=== PATIENT | female | born 1990 | race Caucasian/White ===

== ENCOUNTER 2016-06-27 15:22 | Emergency (ER) | payer MEDICAID ==
--- NOTE | 2016-06-27 15:53 | ED Physician Chart ---
Chief Complaint/HPI - Patient Information Date Seen:: 06/27/16 Time Seen:: 15:35 Chief Complaint:: cough, back pain History of Present Illness:: 2 - 3 days prod. cough (pt. does not look at sputum). Subj. fever. LBP, bilat with cough. Allergies:: Allergies Allergy/AdvReac Type Severity Reaction Status Date / Time erythromycin base Allergy Verified 02/19/16 21:59 Vitals:: 99.6 110 145/71 22 97% RA Historian:: Patient LMP:: 2015. Recent UTI rx'ed with ? antibiotic 1 week ago. Had neg. preg. test then. Review of Systems - Review of Systems General/Constitutional: Fever (subjective fever only) Skin: No skin lesions ENT: No earache, No sore throat Neck: No neck pain Cardio Vascular: Chest pain (Pleuritic chest and back pain) Pulmonary: Cough, Sputum (Pt. has not looked, cannot describe sputum) G/U: No dysuria Carpet Tile Layer: No vaginal discharge Musculoskeletal: Back pain (back pain with movement, coughing. Bilat. lumbar) Psychiatric: No prior psych history Past Medical History - Past Medical History Past Medical History: HTN (pt. 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 . Also orthopedic lower extremity surg.) Psychiatricy History: None (unspecified anti-hypertensive. Also was recently on unspecified urinary antibiotic.) Family Medical History - Family Member Mother Ethnicity: Non- Hx Family Hypertension: Yes Father History Unknown: Yes Ethnicity: Non- Living Status: Still Living Hx Family Hypertension: Yes Physical Exam - Physical Examination General/Constitutional: Awake, Well-developed, well-nourished, Alert, No distress, GCS 15, Non-toxic appearing Eyes: Lids, conjuctiva normal, PERRL, EOMI Skin: Nl inspection Neck: Nontender, Full ROM w/o pain Respiratory: Nl effort/Exclusion, Clear to Auscultation, No Wheeze/Rhonchi/Rales Cardio Vascular: RRR, No murmur, gallop, rubs GI: No tenderness/rebounding/guarding : No CVA tenderness Extremities: No tenderness or effusion, Full ROM Neuro/Psych: DTR's symmetric, No focal deficits Misc: No paraspinal tenderness Labs/Radiology/EKG Results - Lab Results Results: Preg. neg. CXR: No cardiomeg., no obvious infiltrate. UA unremarkable. WBC 3.7 and H/H are normal. CMP unrmarkable. BUN/creat 6/0.6 ED Septic Shock - . Is Septic Shock (SBP<90, OR Lactate>4 mmol\L) present?: No Reassessment (Disposition) - Reassessment Reassessment Condition:: Improved - Diagnosis Diagnosis:: Dx: 1. Bronchitis 2. Low back strain - Aftercare/Follow up Instructions Aftercare/Follow-Up Instructions:: Counseled pt regarding lab results/diagnosis & need follow up Medication Prescribed:: Rx: Z Cheko take as directed. Disp. #1 No refill Rx: [place] I po q4h prn. No driving. Disp. #8 No refill. - Patient Disposition Discharge/Transfer:: Home Condition at Disposition:: Stable ED Discharge Plan - Patient Disposition Admit/Discharge/Transfer: PT DISCHARGED HOME Condition at Disposition: Improved
[2016-06-27 16:03] LABS: % EOSINOPHILS 0.9 % (0.0-5.0); % LYMPHOCYTES 17.5 % (20.0-50.0); % MONOCYTES 10.6 % (2.0-10.0); HEMATOCRIT 42.4 % (35.0-45.0); HEMOGLOBIN 14.4 gm/dL (11.7-15.5); MEAN CELL VOLUME 85.3 fl (81-100); MEAN CORPUSCULAR HGB CONC 34.1 pg (28.0-36.0); MEAN PLATELET VOLUME 7.8 fl; NEUTROPHILE ABSOLUTE 2.7 Th/cmm (1.8-8.0); PLATELET COUNT 164 Th/cmm (150-400); RED BLOOD COUNT 4.97 Mil/cmm (3.80-5.10); RED CELL DISTRIBUTION WIDTH 13.5 % (11.5-20.0); WHITE BLOOD COUNT 3.7 Th/cmm (4.8-10.8)
[2016-06-27 16:14] LABS: URINE BILIRUBIN NEGATIVE (NEGATIVE); URINE BLOOD NEGATIVE (NEGATIVE); URINE COLOR YELLOW; URINE GLUCOSE (UA) NEGATIVE (NEGATIVE); URINE KETONE NEGATIVE (NEGATIVE); URINE PROTEIN NEGATIVE (NEGATIVE); URINE UROBILINOGEN 0.2 E.U./dL (0.2 - 1.0)
[2016-06-27 16:15] LABS: URINE BACTERIA NONE SEEN /hpf (NONE SEEN); URINE EPITHELIAL CELLS FEW /lpf (FEW); URINE RBC NONE SEEN /hpf (0-5); URINE WBC 0-2 /hpf (0-5)
[2016-06-27 16:22] LABS: ALB/GLOB RATIO 1.8 (1.0-1.8); ALKALINE PHOSPHATASE 68 U/L (34-104); BILIRUBIN,TOTAL 0.6 mg/dL (0.3-1.0); BUN - UREA NITROGEN 6 mg/dL (7-25); CALCIUM SERUM 8.8 mg/dL (8.6-10.3); CARBON DIOXIDE 23.8 mEq/L (21.0-31.0); CHLORIDE 105 mEq/L (98-107); CREATININE - SERUM 0.6 mg/dL (0.6-1.2); GLUCOSE 99 mg/dL (70-105); POTASSIUM SERUM 3.8 mEq/L (3.5-5.1); SGOT 17 U/L (13-39); SGPT/ALT 15 U/L (7-52); SODIUM SERUM 136 mEq/L (136-145)
--- NOTE | 2016-06-28 11:24 | Diagnostic Imaging Report ---
Chest x-ray 2 views HISTORY:Cough The overall heart size is normal. No focal pulmonary processes. No hilar or mediastinal abnormalities. IMPRESSION: No acute abnormalities.
== END 2016-06-27 17:56 | disposition home or self-care (01) ==
LOC: ER 15:22
DX: J40 Bronchitis, not specified as acute or chronic (principal); S39.012A Strain of muscle, fascia and tendon of lower back, initial encounter; I10 Essential (primary) hypertension; Z88.1 Allergy status to other antibiotic agents; X58.XXXA Exposure to other specified factors, initial encounter; Y93.89 Activity, other specified; Y92.89 Other specified places as the place of occurrence of the external cause; Y99.8 Other external cause status
CPT/HCPCS: 36415-UA; 71020-TC; 80053-TC; 81001-TC; 81025-TC; 84703-TC; 85025-TC

== ENCOUNTER 2016-11-21 04:55 | Emergency (ER) | payer MEDICAID ==
--- NOTE | 2016-11-21 05:11 | ED Physician Chart ---
Chief Complaint/HPI - Patient Information Date Seen:: 11/21/16 Time Seen:: 05:00 Chief Complaint:: back pain History of Present Illness:: 26-year-old female history of on and off back problems complains of acute, constant, severe, 9 out of 10, radiating to the left thigh, back pain 4 weeks. Patient says she took one [id number] ibuprofen but the pain persisted. Denies any injury or fevers. Denies urinary or bowel incontinence. Denies saddle anesthesia. Allergies:: Allergies Allergy/AdvReac Type Severity Reaction Status Date / Time erythromycin base Allergy Verified 11/21/16 04:59 Historian:: Patient Review:: Nurse's Note Reviewed Review of Systems - Review of Systems Other: Complete system review otherwise unremarkable except as noted in history of present illness. Past Medical History - Past Medical History Past Medical History: Other (chronic back problems, obesity) Family History: None Social History: Non Smoker, No Alcohol, No Drug Use, Employed Surgical History: None Psychiatricy History: None Medication: None Family Medical History - Family Member Mother Ethnicity: Non- Hx Family Cancer: No Hx Family Coronary Artery Disease: No Hx Family Congestive Heart Failure: No Hx Family Hypertension: Yes Father History Unknown: Yes Ethnicity: Non- Living Status: Still Living Hx Family Hypertension: Yes Physical Exam - Physical Examination Other:: INITIAL VITAL SIGNS: Reviewed by me GENERAL: Alert and interactive. No acute distress. Obese HEAD: Head is normocephalic and atraumatic EYES: EOMI. No scleral icterus. No conjunctival injection ENT: Moist mucous membranes. NECK: Supple. No masses. Full range of motion RESPIRATORY: No tachypnea. Clear breath sounds bilaterally. No wheezing, rales, or rhonchi CV: Regular rate and rhythm. No murmurs, rubs, or gallops ABDOMEN: Soft, non-distended, non-tender. No guarding. No rebound. No masses. EXTREMITIES: No deformity. No cyanosis. No edema. SKIN: Warm and dry. No obvious rashes. NEUROLOGIC: Alert and oriented. Face is symmetric. Speech is normal. Moves all extremities equally. Motor and sensory distally intact. Labs/Radiology/EKG Results - Lab Results Results: Lab Results 11/21/16 Range/Units 05:10 Urine Test NEGATIVE Lab Results 11/21/16 11/21/16 Range/Units 05:10 05:10 Urine Source CLEAN C Urine Color YELLOW Urine Clarity HAZY (CLEAR) Urine pH 5.5 Ur Specific [place] 1.015 (1.005-1.030) Urine Protein NEGATIVE (NEGATIVE) mg/dL Urine Glucose (UA) NEGATIVE (NEGATIVE) mg/dL Urine Ketones NEGATIVE (NEGATIVE) mg/dL Urine Blood MODERATE H (NEGATIVE) Urine Nitrate NEGATIVE (NEGATIVE) Urine Bilirubin NEGATIVE (NEGATIVE) Urine Urobilinogen 0.2 (0.2 - 1.0) E.U./dL Ur Leukocyte Esterase SMALL H (NEGATIVE) Urine RBC 0-2 (0-5) /hpf Urine WBC 6-10 H (0-5) /hpf Ur Epithelial Cells FEW (FEW) /lpf Urine Bacteria FEW (NONE SEEN) /hpf Urine Test NEGATIVE ED Septic Shock - . Is Septic Shock (SBP<90, OR Lactate>4 mmol\L) present?: No Reassessment (Disposition) - Reassessment Reassessment:: This is a 26-year-old female, obese 118 kg, has on and off back problems, complaining of back pain for the past month now. Denies any injury. Exam is fairly unremarkable. We did give intramuscular Toradol and provided a prescription for ibuprofen. Recommended that she follow-up with her primary care physician within one to 2 days. She could possibly benefit from physical therapy. Weight loss may also improve her back. Discussed all these things with the patient. Gave return to ER precautions. Patient says she understands and agrees with plan. Blood pressure was noted to be elevated over 120/80. There were no signs of hypertension. Discussed the findings with the patient and recommended that the patient follow up with the primary care physician regarding the elevated blood pressure. Reassessment Condition:: Improved - Diagnosis Diagnosis:: Acute back strain, lumbar Elevated blood pressure without diagnosis of hypertension - Aftercare/Follow up Instructions Aftercare/Follow-Up Instructions:: Counseled pt regarding lab results/diagnosis & need follow up, Refer to Discharge Instructions Medication Prescribed:: Ibuprofen - Patient Disposition Discharge/Transfer:: Home Time:: 05:40 Condition at Disposition:: Improved ED Discharge Plan - Patient Disposition Admit/Discharge/Transfer: PT DISCHARGED HOME Condition at Disposition: Improved Instructions: Back Pain, Adult
[2016-11-21 05:51] LABS: URINE BILIRUBIN NEGATIVE (NEGATIVE); URINE BLOOD MODERATE (NEGATIVE); URINE COLOR YELLOW; URINE GLUCOSE (UA) NEGATIVE (NEGATIVE); URINE KETONE NEGATIVE (NEGATIVE); URINE PH 5.5; URINE PROTEIN NEGATIVE (NEGATIVE); URINE UROBILINOGEN 0.2 E.U./dL (0.2 - 1.0)
[2016-11-21 05:52] LABS: URINE BACTERIA FEW /hpf (NONE SEEN); URINE EPITHELIAL CELLS FEW /lpf (FEW); URINE RBC 0-2 /hpf (0-5)
== END 2016-11-21 06:00 | disposition home or self-care (01) ==
LOC: ER 04:55
DX: S39.012A Strain of muscle, fascia and tendon of lower back, initial encounter (principal); Z88.1 Allergy status to other antibiotic agents; X58.XXXA Exposure to other specified factors, initial encounter; Y93.89 Activity, other specified; Y92.89 Other specified places as the place of occurrence of the external cause; Y99.8 Other external cause status
CPT/HCPCS: 99284; 96372; 81001; 81025; J1885; Z7502

== ENCOUNTER 2017-03-18 15:08 | Emergency (ER) | payer MEDICAID ==
--- NOTE | 2017-03-18 15:58 | ED Physician Chart ---
ED Chief Complaint/HPI - Patient Information Date Seen:: 03/18/17 Time Seen:: 15:23 Chief Complaint:: RIGHT FOOT PAIN History of Present Illness:: THIS IS A 26 YO FEMALE WHO STATES THAT A PIECE OF GRANITE FELL AND HIT HER ON THE TOP OF HER RIGHT FOOT FOUR DAYS AGO. SHE IS NOW CONCERN BECAUSE TO PAIN IS PERSISTING. Allergies:: Allergies Allergy/AdvReac Type Severity Reaction Status Date / Time erythromycin base Allergy Verified 11/21/16 04:59 Vitals:: Vital Signs - 8 hr 03/18/17 15:20 Temp 98.2 F HR 103 RR 16 BP 140/80 O2 Sat % 97 Historian:: Patient Review:: Nurse's Note Reviewed ED Review of Systems - Review of Systems General/Constitutional: No fever, No chills, No weight loss, No weakness, No diaphoresis, No edema, No loss of appetite Skin: No skin lesions, No rash, No bruising Head: No headache, No light-headedness Eyes: No loss of vision, No pain, No diplopia ENT: No earache, No nasal drainage, No sore throat, No tinnitus Neck: No neck pain, No swelling, No thyromegaly, No stiffness, No mass noted Cardio Vascular: No chest pain, No palpitations, No PND, No orthopnea, No edema Pulmonary: No SOB, No cough, No sputum, No wheezing GI: No nausea, No vomiting, No diarrhea, No pain, No melena, No hematochezia, No constipation, No hematemesis G/U: No dysuria, No frequency, No hematuria Musculoskeletal: Bone or joint pain (THE TOP OF THE RIGHT FOOT HURTS TO WALK), No back pain, No muscle pain Endocrine: No polyuria, No polydipsia Psychiatric: No prior psych history, No depression, No anxiety, No suicidal ideation Hematopoietic: No bruising, No lymphadenopathy Allergic/Immuno: No urticaria, No angioedema Neurological: No syncope, No focal symptoms, No weakness, No paresthesia, No headache, No seizure, No dizziness, No confusion, No vertigo ED Past Medical History - Past Medical History Obtainable: Yes Past Medical History: Other (OBESITY) Family History: None Social History: Non Smoker, No Alcohol, No Drug Use Surgical History: other (BILATERAL LEG SURGERY, SURGERY ON THE UTERUS.) Family Medical History - Family Member Mother History Unknown: Yes Ethnicity: Non- Hx Family Cancer: No Hx Family Coronary Artery Disease: No Hx Family Congestive Heart Failure: No Hx Family Hypertension: Yes Father History Unknown: Yes Ethnicity: Non- Living Status: Still Living Hx Family Hypertension: Yes ED Physical Exam - Physical Examination General/Constitutional: Awake, Well-developed, well-nourished, Alert, No distress, GCS 15, Non-toxic appearing, Ambulatory Head: Atraumatic Eyes: Lids, conjuctiva normal, PERRL, EOMI Skin: Nl inspection, No rash, No skin lesions, No ecchymosis, Well hydrated, No lymphadenopathy ENMT: External ears, nose nl, Nasal exam nl, Lips, teeth, gums nl Neck: Nontender, Full ROM w/o pain, No JVD, No nuchal rigidity, No bruit, No mass, No stridor Respiratory: Nl effort/Exclusion, Clear to Auscultation, No Wheeze/Rhonchi/Rales Cardio Vascular: RRR, No murmur, gallop, rubs, NL S1 S2 GI: No tenderness/rebounding/guarding, No organomegaly, No hernia, Normal BS's, Nondistended, No mass/bruits, No McBurney tenderness : No CVA tenderness Extremities: Full ROM, normal strength in all extremities, No edema, Normal digits & nails Other Extremities comments:: TENDERNESS AND SWOLLEN RIGHT DORSAL FOOT. Neuro/Psych: Alert/oriented, DTR's symmetric, Normal sensory exam, Normal motor strength, Judgement/insight normal, Mood normal, Normal gait, No focal deficits Misc: normal gait, Normal back, No paraspinal tenderness ED Labs/Radiology/EKG Results - Radiology Results Results: RIGHT FOOT X-RAY = NEGATIVE FOR FRACTION ED Assessment - Assessment General Assessment: CONTUSION OF THE RIGHT FOOT ED Septic Shock - . Is Septic Shock (SBP<90, OR Lactate>4 mmol\L) present?: No - <6hrs of presentation: Vital Signs: Vital Signs - 8 hr 03/18/17 15:20 Temp 98.2 F HR 103 RR 16 BP 140/80 O2 Sat % 97 ED Reassessment (Disposition) - Reassessment Reassessment Condition:: Unchanged - Diagnosis Diagnosis:: CONTUSION OF THE RIGHT FOOT - Patient Disposition Discharge/Transfer:: Home Condition at Disposition:: Stable ED Discharge Plan - Patient Disposition Admit/Discharge/Transfer: PT DISCHARGED HOME Condition at Disposition: Stable
--- NOTE | 2017-03-19 08:23 | Diagnostic Imaging Report ---
Exam: Right foot. HISTORY: Trauma Findings: Multiple views of the right foot reviewed. The study demonstrates no evidence for acute fracture dislocation. Mild soft tissue swelling might be consistent with cellulitis. Clinical correlation recommended. There is a valgus deformity of the right great toe. IMPRESSION: Soft tissue swelling, question cellulitis right foot, no evidence of fracture or dislocation.
== END 2017-03-18 16:25 | disposition home or self-care (01) ==
LOC: ER 15:08
DX: S90.31XA Contusion of right foot, initial encounter (principal); X58.XXXA Exposure to other specified factors, initial encounter; Y93.89 Activity, other specified; Y92.89 Other specified places as the place of occurrence of the external cause; Y99.8 Other external cause status
CPT/HCPCS: 73620-TC-RT; Z7502

== ENCOUNTER 2017-09-29 08:41 | Emergency (ER) | payer MEDICAID ==
--- NOTE | 2017-09-29 11:51 | ED Physician Chart ---
ED Chief Complaint/HPI - Patient Information Date Seen:: 09/29/17 Time Seen:: 08:45 Chief Complaint:: Rash History of Present Illness:: onset x one day of a generalized itching rash; pt denies trauma, H/As, ALOC, AMS , LOC, S/T, neck pain, C/P, SOB, cough, Abd. Pain, A/N/V/D/C, fever, chills, or urinary s/s; LNMP: 09/22/17; pt denies ; pt's last tetanus shot: < 5 years; UTD; Allergies:: Allergies Allergy/AdvReac Type Severity Reaction Status Date / Time erythromycin base Allergy Verified 11/21/16 04:59 Vitals:: Vital Signs - 8 hr 09/29/17 09/29/17 08:44 09:20 Temp 97.3 F 97.3 F HR 97 97 RR 16 16 BP 145/88 O2 Sat % 98 98 Historian:: Patient Review:: Nurse's Note Reviewed ED Review of Systems - Review of Systems General/Constitutional: No fever, No chills, No weight loss, No weakness, No diaphoresis, No edema, No loss of appetite Skin: Skin lesions, Rash, No bruising Head: No headache, No light-headedness Eyes: No loss of vision, No pain, No diplopia ENT: No earache, No nasal drainage, No sore throat, No tinnitus Neck: No neck pain, No swelling, No thyromegaly, No stiffness, No mass noted Cardio Vascular: No chest pain, No palpitations, No PND, No orthopnea, No edema Pulmonary: No SOB, No cough, No sputum, No wheezing GI: No nausea, No vomiting, No diarrhea, No pain, No melena, No hematochezia, No constipation, No hematemesis G/U: No dysuria, No frequency, No hematuria, No nacturia Window Repairer: No vaginal discharge, No abnormal vaginal bleed, No contraction Musculoskeletal: No bone or joint pain, No back pain, No muscle pain Endocrine: No polyuria, No polydipsia Psychiatric: No prior psych history, No depression, No anxiety, No suicidal ideation, No homicidal ideation, No auditory hallucination, No visual hallucination Hematopoietic: No bruising, No lymphadenopathy Allergic/Immuno: No urticaria, No angioedema Neurological: No syncope, No focal symptoms, No weakness, No paresthesia, No headache, No seizure, No dizziness, No confusion, No vertigo ED Past Medical History - Past Medical History Obtainable: Yes Past Medical History: No significant medical hx Family History: None Social History: Non Smoker, No Alcohol, No Drug Use, , Employed Surgical History: None Psychiatricy History: None Medication: Reviewed Family Medical History - Family Member Mother History Unknown: Yes Ethnicity: Non- Hx Family Cancer: No Hx Family Coronary Artery Disease: No Hx Family Congestive Heart Failure: No Hx Family Hypertension: Yes Father History Unknown: Yes Ethnicity: Non- Living Status: Hx Family Cancer: Yes (Lung cancer) Hx Family Coronary Artery Disease: No Hx Family Congestive Heart Failure: No Hx Family Hypertension: No Hx Family Stroke: No Hx Family Diabetes: No Hx Family Seizures: No Hx Family Dementia: No Hx Family AIDS: No Hx Family HIV: No Hx Family COPD: Yes Hx Family Hepatitis: No Hx Family Psychiatric Problems: No Hx Family Tuberculosis: No ED Physical Exam - Physical Examination General/Constitutional: Awake, Well-developed, well-nourished, Alert, No distress, GCS 15, Non-toxic appearing, Ambulatory Head: Atraumatic Eyes: Lids, conjuctiva normal, PERRL, EOMI Skin: Nl inspection, No skin lesions, No ecchymosis, Well hydrated, No lymphadenopathy Other Skin comments:: + Generalized, diffuse papular and urticaria lesions; no FBs; no PWs; no cellulitis; good motor and sensory functions; good NV functions ENMT: External ears, nose nl, TM canals nl, Nasal exam nl, Lips, teeth, gums nl , Oropharynx nl, Tonsils nl Other ENMT comments:: Uvula: WNL; no FBs; no airway obstruction Neck: Nontender, Full ROM w/o pain, No JVD, No nuchal rigidity, No bruit, No mass, No stridor Other Neck comments:: supple; no meningeal signs; no cervical tenderness Respiratory: Nl effort/Exclusion, Clear to Auscultation, No Wheeze/Rhonchi/Rales Cardio Vascular: RRR, No murmur, gallop, rubs, NL S1 S2, Carotid/Femoral/Distal pulses equal bilaterally GI: No tenderness/rebounding/guarding, No organomegaly, No hernia, Normal BS's, Nondistended, No mass/bruits, No McBurney tenderness, Rectum exam nl Other GI comments:: no pulsatile masses : No CVA tenderness Extremities: No tenderness or effusion, Full ROM, normal strength in all extremities, No edema, Normal digits & nails Neuro/Psych: Alert/oriented, DTR's symmetric, Normal sensory exam, Normal motor strength, Judgement/insight normal, Mood normal, Normal gait, No focal deficits Misc: Normal back, No paraspinal tenderness ED Septic Shock - . Is Septic Shock (SBP<90, OR Lactate>4 mmol\L) present?: No - <6hrs of presentation: Vital Signs: Vital Signs - 8 hr 09/29/17 09/29/17 08:44 09:20 Temp 97.3 F 97.3 F HR 97 97 RR 16 16 BP 145/88 O2 Sat % 98 98 ED Reassessment (Disposition) - Reassessment Reassessment:: pt is asymptomatic upon discharge Reassessment Condition:: Improved - Diagnosis Diagnosis:: Rash; Itching; Itching Rash; Urticaria; Dermatitis; Allergic Reaction - Aftercare/Follow up Instructions Aftercare/Follow-Up Instructions:: Counseled pt regarding lab results/diagnosis & need follow up, Refer to Discharge Instructions, Counseled pt & family regarding lab results/diagnosis & need follow up Medication Prescribed:: Medrol Dose Pack; Benadryl 25mg po qid prn itching rash; take medications as prescribed; avoid known allergins; Skin Care Instructions - Patient Disposition Discharge/Transfer:: Home Condition at Disposition:: Stable, Improved (RTER prn if existing s/s reoccur and/or get worse and/or any other new s/s occur; ACIs given for all above Dx; Refer to Ditch Tender/Copywriting Intern/Cat Cracker Operator EMERSON; F/U with PMD in one day or prn ; RTER prn if concerned) ED Discharge Plan - Patient Disposition Admit/Discharge/Transfer: PT DISCHARGED HOME Condition at Disposition: Stable Prescriptions: Diphenhydramine HCL [Benadryl] 25 mg PO QID PRN #20 cap PRN Reason: Itching Methylprednisolone [Medrol] 4 mg PO UD 7 Days tab.ds.pk Instructions: Rash
== END 2017-09-29 09:47 | disposition home or self-care (01) ==
LOC: ER 08:41
DX: L23.9 Allergic contact dermatitis, unspecified cause (principal); Z88.1 Allergy status to other antibiotic agents
CPT/HCPCS: Z7502